=== PATIENT | female | born 1990 | race Caucasian/White ===

== ENCOUNTER 2023-12-07 05:34 | Inpatient (IN) ==
[2023-12-07] MEDS: Lactated Ringers 1000 ml BAG 1,000 ML IV ONE (06:15)
[2023-12-07 06:28] LABS: ABS Lymphocytes 1.7 10^3/uL (1.0-4.8); ABS Monocytes 0.8 10^3/uL (0.0-0.9); ABS Neutrophils 6.4 10^3/uL (1.5-7.6); Eosinophil % 0.3 %; Hematocrit 31.4 % (35-45); Hemoglobin 10.5 g/dL (11.5-14.3); Lymphocyte % 18.9 %; Mean Corpuscular Hemoglobin 27.9 pg (27-33); Mean Corpuscular Hgb Conc 33.5 g/dL (31-36); Mean Corpuscular Volume 83.2 fL (80-97); Mean Platelet Volume 8.4 fL (7.5-11.2); Platelet Count 195 10^3/uL (150-450); Red Blood Count 3.77 10^6/uL (3.63-4.92); Red Cell Distribution Width 14.3 % (12-17); White Blood Count 8.9 10^3/uL (3.8-11.8)
[2023-12-07] MEDS: Penicillin G Potassium IV 5,000,000 UNITS in NS 0.9% 100 ml BAG 100 ML IVPB ONE (06:38)
[2023-12-07] MEDS: Oxytocin 10 UNITS/ML 1 ML VIAL IM ONE (06:53)
[2023-12-07] MEDS: Methylergonovine 0.2 mg AMPULE 1 ml AMP ONE (06:56)
[2023-12-07] MEDS: Lidocaine 1% VIAL 10 MG/ML 30 ML VIAL INJ PRN (06:59)
[2023-12-07] MEDS ORDERED: Measles, Mumps,Rubella VACC 0.5 ML/VIAL SUBCUT ONE (07:42)
[2023-12-07] MEDS ORDERED: Lactated Ringers 1000 ml BAG 1,000 ML IV SCH (08:00)
[2023-12-07] MEDS: Methylergonovine 0.2 mg AMPULE 1 ml AMP IM ONE (08:09)
[2023-12-07] MEDS: Witch Hazel PAD JAR TOPICAL PRN (08:30)
[2023-12-07] MEDS: Dibucaine 1% OINT 28.35 GM TUBE PR PRN (08:31)
[2023-12-07] MEDS ORDERED: Penicillin G Potassium IV 3,000,000 UNITS in NS 0.9% 100 ml BAG 100 ML IVPB SCH (10:30)
[2023-12-07 12:02] LABS: Urine Benzodiazepine Screen None Detected (None Detect); Urine Cannabinoids Screen None Detected (None Detect); Urine Opiates Screen None Detected (None Detect)
[2023-12-08 07:09] LABS: ABS Eosinophils 0.1 10^3/uL (0.0-0.5); ABS Lymphocytes 1.4 10^3/uL (1.0-4.8); ABS Monocytes 0.6 10^3/uL (0.0-0.9); ABS Neutrophils 4.9 10^3/uL (1.5-7.6); Eosinophil % 1.1 %; Hematocrit 26.6 % (35-45); Hemoglobin 8.8 g/dL (11.5-14.3); Lymphocyte % 19.8 %; Mean Corpuscular Hgb Conc 33.2 g/dL (31-36); Mean Corpuscular Volume 84.3 fL (80-97); Mean Platelet Volume 8.4 fL (7.5-11.2); Platelet Count 164 10^3/uL (150-450); Red Blood Count 3.16 10^6/uL (3.63-4.92); Red Cell Distribution Width 14.4 % (12-17)
[2023-12-09] MEDS: Measles, Mumps,Rubella VACC 0.5 ML/VIAL SUBCUT ONE (09:26)
[2023-12-09 10:55] VITALS: BP 112/67
== END 2023-12-09 11:19 | disposition home or self-care (01) | DRG 560 ==
LOC: MCHOBOUT 05:34 → MCHOB 05:41
PROVIDERS: ADMIT Midwife; ATTEND Midwife